=== PATIENT | female | born 1965 | race Two or more races ===

== ENCOUNTER 2019-01-26 09:41 | Outpatient (CLI) | payer OTHER | END 2019-01-26 10:47 | disposition home or self-care (01) | LOC: LAB 09:41 | DX: J11.1 Influenza due to unidentified influenza virus with other respiratory manifestations (principal); J11.89 Influenza due to unidentified influenza virus with other manifestations ==

== ENCOUNTER 2022-05-13 12:24 | Emergency (ER) | payer OTHER ==
[~2022-05-13] VITALS: Ht 154.9 cm; Wt 63.5 kg
== END 2022-05-13 15:41 | disposition home or self-care (01) ==
LOC: ER 12:24
DX: S89.81XA Other specified injuries of right lower leg, initial encounter (principal); Y93.B9 Activity, other involving muscle strengthening exercises; Y92.89 Other specified places as the place of occurrence of the external cause; Y99.9 Unspecified external cause status; Z88.2 Allergy status to sulfonamides